=== PATIENT | female | born 1995 | race Caucasian/White ===

== ENCOUNTER 2022-05-16 12:50 | Inpatient (IN) | payer BC ==
[~2022-05-16] VITALS: Ht 154.9 cm; Wt 94.8 kg
[2022-05-16] MEDS ORDERED: CITRIC ACID/SODIUM CITRATE 30 ML UDC PO ONE (13:50)
[2022-05-16] MEDS ORDERED: METHYLERGONOVINE 0.2 MG/ML AMP IM PRN ×2 (13:50→17:15)
[2022-05-16 13:53] LABS: BASOPHILS % (AUTO) 0.2 % (0.0-2.0); EOSINOPHILS # (AUTO) 0.1 K/uL (0-0.4); EOSINOPHILS % (AUTO) 0.8 % (0.0-4.0); HEMATOCRIT 35.3 % (36-48); LYMPHOCYTES # (AUTO) 1.5 K/uL (2.5-16.5); MEAN CORPUSCULAR HEMOGLOBIN 30 pg (27-31); MEAN CORPUSCULAR HGB CONC 34 g/dL (33-37); MEAN CORPUSCULAR VOLUME 86.9 fL (80-94); MONOCYTES # (AUTO) 0.5 K/uL (0.8-1.0); MONOCYTES % (AUTO) 4.6 % (1.7-9.3); NEUTROPHILS # (AUTO) 7.7 K/uL (1.8-7.7); NEUTROPHILS % (AUTO) 79.4 % (42.2-75.2); PLATELET COUNT (AUTO) 211 K/uL (140-450); RED BLOOD CELL COUNT(AUTO) 4.07 MIL/uL (4.20-5.40); RED CELL DISTRIBUTION WIDTH 14.2 % (11.6-13.7); WHITE BLOOD COUNT (AUTO) 9.7 K/uL (4.8-10.8)
[2022-05-16 14:31] LABS: APPEARANCE,URINE HAZY (CLEAR); BILIRUBIN,URINE NEGATIVE (NEGATIVE); BLOOD, URINE TRACE-I (NEGATIVE); COLOR,URINE YELLOW (YELLOW); LEUKOCYTE ESTERASE ,URINE NEGATIVE (NEGATIVE); NITRITE, URINE NEGATIVE (NEGATIVE); UGLUCOSE NEGATIVE (NEGATIVE)
[2022-05-16 14:32] LABS: ALBUMIN 3.1 g/dL (3.4-5.0); ANION GAP 15.2 (8-16); CARBON DIOXIDE 22.5 mmol/L (21-32); CREATININE 0.6 mg/dL (0.6-1.3); POTASSIUM 3.7 mmol/L (3.5-5.1); TOTAL BILIRUBIN 0.4 mg/dL (0.0-1.0)
[2022-05-16] MEDS: LACTATED RINGERS 1,000 ML IV SCH ×2 (14:33→16:01)
[2022-05-16 15:55] LABS: PROTHROMBIN TIME 8.8 secs (10.8-13.4)
[2022-05-16] MEDS ORDERED: ceFAZolin 2,000 MG VIAL ONE (16:24)
[2022-05-16] MEDS ORDERED: MORPHINE PRES FREE 10 MG/10 ML AMP IV ONE (16:29)
[2022-05-16 16:31] VITALS: BP 117/81
[2022-05-16] MEDS ORDERED: diphenhydrAMINE 50 MG/ML VIAL ONE (16:33)
[2022-05-16] MEDS ORDERED: KETOROLAC 30 MG/ML VIAL IVP PRN (17:15)
[2022-05-16] MEDS ORDERED: TEMAZEPAM 15 MG CAP PO PRN (17:15)
[2022-05-16] MEDS ORDERED: METOCLOPRAMIDE 10 MG/2 ML INJ VIAL IVP PRN (17:39)
[2022-05-16] MEDS ORDERED: NALBUPHINE 10 MG/ML AMP IVP PRN (17:40)
[2022-05-16] MEDS ORDERED: NALOXONE 0.4 MG/ML VIAL IVP PRN ×3 (17:40)
[2022-05-16] MEDS ORDERED: ONDANSETRON 4 MG/2 ML VIAL IVP PRN (17:40)
[2022-05-16] MEDS: diphenhydrAMINE 50 MG/ML VIAL IVP PRN (18:25)
[2022-05-16] MEDS: OXYTOCIN 20 UNITS/LR PREMIX 1,000 ML IV ONE ×2 (18:28→18:43)
[2022-05-16] MEDS: DOCUSATE SOD/SENNA 50/8.6 MG 1 TAB PO SCH (21:00)
[2022-05-16] MEDS ORDERED: OXYTOCIN 20 UNITS/LR PREMIX 1,000 ML IV ONE (23:15)
[2022-05-16] MEDS: OXYTOCIN 20 UNITS in LACTATED RINGERS 1,000 ML IV SCH (23:23)
[2022-05-16] MEDS: KETOROLAC 30 MG/ML VIAL IM/IVP SCH (23:54)
[2022-05-17] MEDS: diphenhydrAMINE 50 MG/ML VIAL IVP PRN (01:52)
[2022-05-17 05:19] LABS: BASOPHILS % (AUTO) 0.3 % (0.0-2.0); EOSINOPHILS # (AUTO) 0.1 K/uL (0-0.4); EOSINOPHILS % (AUTO) 1.1 % (0.0-4.0); HEMATOCRIT 28.4 % (36-48); HEMOGLOBIN 9.6 g/dL (12.0-16.0); LYMPHOCYTES # (AUTO) 1.5 K/uL (2.5-16.5); LYMPHOCYTES % (AUTO) 18.9 % (20.5-51.1); MEAN CORPUSCULAR HEMOGLOBIN 30 pg (27-31); MEAN CORPUSCULAR HGB CONC 34 g/dL (33-37); MEAN CORPUSCULAR VOLUME 87.2 fL (80-94); MONOCYTES # (AUTO) 0.4 K/uL (0.8-1.0); MONOCYTES % (AUTO) 5.4 % (1.7-9.3); NEUTROPHILS # (AUTO) 5.8 K/uL (1.8-7.7); NEUTROPHILS % (AUTO) 74.3 % (42.2-75.2); PLATELET COUNT (AUTO) 166 K/uL (140-450); RED BLOOD CELL COUNT(AUTO) 3.26 MIL/uL (4.20-5.40); RED CELL DISTRIBUTION WIDTH 14.4 % (11.6-13.7); WHITE BLOOD COUNT (AUTO) 7.8 K/uL (4.8-10.8)
[2022-05-17] MEDS: KETOROLAC 30 MG/ML VIAL IM/IVP SCH ×2 (06:09→12:27)
[2022-05-17] MEDS ORDERED: OXYTOCIN 20 UNITS/LR PREMIX 1,000 ML IV ONE (06:53)
[2022-05-17] MEDS: OXYTOCIN 20 UNITS in LACTATED RINGERS 1,000 ML IV SCH (07:00)
--- NOTE | 2022-05-17 10:12 | NUR ---
PATIENT HAS BEEN SCREENED AND CATEGORIZED LOW NUTRITION RISK. PATIENT WILL BE SEEN WITHIN 7 DAYS OF ADMISSION. 05/23/22 REVIEWED BY [address]ILIA [address]
[2022-05-17] MEDS: oxyCODONE/APAP 5/325 MG 1 TAB TAB PO PRN (16:00)
[2022-05-17] MEDS ORDERED: CAMERA MC ONE (19:44)
[2022-05-17] MEDS: IBUPROFEN 800 MG TAB PO PRN (20:23)
[2022-05-17] MEDS: DOCUSATE SOD/SENNA 50/8.6 MG 1 TAB PO SCH (20:23)
[2022-05-18] MEDS: oxyCODONE/APAP 5/325 MG 1 TAB TAB PO PRN ×3 (03:34→14:04)
[2022-05-18] MEDS: IBUPROFEN 800 MG TAB PO PRN (10:42)
== END 2022-05-18 15:15 | disposition home or self-care (01) | DRG 540 ==
LOC: MLD 12:50 → OBSVTOIN 17:21 → MFCC 18:20
PROVIDERS: ADMIT Obstetrics & Gynecology; ATTEND Obstetrics & Gynecology
PROC: 10D00Z1 Extraction of Products of Conception, Low, Open Approach (ICD-10-PCS; principal; 2022-05-16 16:30)
DX: O34.211 Maternal care for low transverse scar from previous cesarean delivery (principal); R71.0 Precipitous drop in hematocrit; O24.429 Gestational diabetes mellitus in childbirth, unspecified control; Z20.822 Contact with and (suspected) exposure to COVID-19; Z37.0 Single live birth; Z3A.38 38 weeks gestation of pregnancy
CPT/HCPCS: 36415; 80053; 85025; 85610; 85730; 86592; 86886; 86900; 86901; J1200; J1885; J2270; J2590